=== PATIENT | male | born 1950 | race Hispanic/Latino ===

== ENCOUNTER 2021-03-06 12:33 | Emergency (ER) | payer MEDICAID, OTHER ==
[~2021-03-06] VITALS: Ht 172.7 cm; Wt 86.2 kg
[2021-03-06] MEDS ORDERED: MAG/ALUM/SIMETH 30 ML UDCUP PO SCH (13:00)
[2021-03-06] MEDS ORDERED: ONDANSETRON 4MG INJ IVP SCH (13:00)
[2021-03-06 13:02] LABS: BASOPHILS % (AUTO) 0.5 % (0.0-5.0); EOSINOPHILS % (AUTO) 0.1 % (0.0-8.0); HEMATOCRIT 43.9 % (42-54); LYMPHOCYTES % (AUTO) 12.8 % (21.0-51.0); MEAN CORPUSCULAR HEMOGLOBIN 28.9 pg (27.0-33.0); MEAN CORPUSCULAR HGB CONC 33.5 g/dL (32.0-36.0); MEAN CORPUSCULAR VOLUME 86.4 fL (79-99); MONOCYTES % (AUTO) 9.8 % (3.0-13.0); NEUTROPHILS % (AUTO) 76.4 % (40.0-77.0); PLATELET COUNT (AUTO) 169 K/uL (130-400); RED BLOOD CELL COUNT(AUTO) 5.08 MIL/uL (4.50-6.20); RED CELL DISTRIBUTION WIDTH 12.8 % (11.0-15.5)
[2021-03-06 13:04] LABS: APPEARANCE,URINE Clear (CLEAR); BILIRUBIN,URINE Negative (NEGATIVE); COLOR,URINE Dark Yellow (YELLOW); GLUCOSE, URINE (UA) Negative (NEGATIVE); KETONES,URINE 15 mg/dL (NEGATIVE); LEUKOCYTE ESTERASE ,URINE Negative (NEGATIVE); NITRATE,URINE Negative (NEGATIVE); OCCULT BLOOD,URINE Negative (NEGATIVE); PH,URINE 5.5 (5.0-8.0); PROTEIN,URINE POS 1+ mg/dL (NEGATIVE)
[2021-03-06] MEDS ORDERED: LIDOCAINE HCL 2% VISCOUS 15 ML UDCUP ONE (13:10)
[2021-03-06 13:14] LABS: BACTERIA,URINE Few /HPF (None Seen); RBC,URINE 0-1 /HPF (0-1); WBC,URINE 0-1 /HPF (0-1)
[2021-03-06 13:16] LABS: ALBUMIN 3.8 g/dL (3.5-5.0); BILIRUBIN,TOTAL 0.4 mg/dL (0.2-1.0); POTASSIUM 3.4 mmol/L (3.5-5.1); TOTAL PROTEIN, SERUM 7.3 g/dL (6.0-8.3)
[2021-03-06] MEDS ORDERED: POTASSIUM BICARB/CIT AC 25 MEQ TABLET.EFF PO ONE (14:30)
[2021-03-06] MEDS ORDERED: DICYCLOMINE HCL 10 MG/5 ML ML PO ONE (14:41)
[2021-03-06] MEDS ORDERED: LEVOFLOXACIN 500 MG TABLET PO SCH (15:00)
[2021-03-06] MEDS ORDERED: METRONIDAZOLE 500 MG TABLET PO SCH (15:00)
[2021-03-06] MEDS ORDERED: TAMSULOSIN HCL 0.4 MG CAP.ER.24H PO SCH (15:00)
[2021-03-06] MEDS ORDERED: METR375C2 PO (15:03)
[2021-03-06] MEDS ORDERED: CIPR-278 PO (15:03)
[2021-03-06] MEDS ORDERED: DICY20TA2 PO (15:03)
[2021-03-06] MEDS ORDERED: TAMS-1 PO (15:04)
[2021-03-06] MEDS ORDERED: ACETAMINOPHEN 500 MG TABLET PO SCH (15:30)
[2021-03-06] MEDS ORDERED: ACETAMINOPHEN 500 MG TABLET ONE (15:35)
[2021-03-06] MEDS ORDERED: TAMSULOSIN HCL 0.4 MG CAP.ER.24H ONE (15:35)
[2021-03-06] MEDS ORDERED: METRONIDAZOLE 500 MG TABLET ONE (15:35)
[2021-03-06] MEDS ORDERED: LEVOFLOXACIN 500 MG TABLET ONE (15:35)
[2021-03-06 16:34] VITALS: BP 146/90
== END 2021-03-06 16:35 | disposition home or self-care (01) ==
LOC: EDH 12:33
DX: K52.9 Noninfective gastroenteritis and colitis, unspecified (principal); N41.9 Inflammatory disease of prostate, unspecified
CPT/HCPCS: 36415; 71045; 74176; 80053; 81001; 83690; 84484; 85025; 93005; 96374; 99285; J2405 ×2

== ENCOUNTER 2021-03-07 09:52 | Observation (INO) | payer OTHER ==
[~2021-03-07] VITALS: Ht 149.9 cm; Wt 62.3 kg
[~2021-03-07 09:52] MED LIST: CIPR-278 PO; DICY20TA2 PO; METR375C2 PO; TAMS-1 PO
[2021-03-07] MEDS ORDERED: ONDANSETRON 4MG INJ ONE (10:14)
[2021-03-07] MEDS ORDERED: FAMOTIDINE 20MG VIAL IV ONE (10:15)
[2021-03-07 10:22] LABS: EOSINOPHILS % (AUTO) 1.2 % (0.0-8.0); HEMATOCRIT 44.9 % (42-54); LYMPHOCYTES % (AUTO) 17.8 % (21.0-51.0); MEAN CORPUSCULAR HGB CONC 34.1 g/dL (32.0-36.0); MEAN CORPUSCULAR VOLUME 85.2 fL (79-99); MONOCYTES % (AUTO) 11.5 % (3.0-13.0); NEUTROPHILS % (AUTO) 68.3 % (40.0-77.0); PLATELET COUNT (AUTO) 181 K/uL (130-400); RED BLOOD CELL COUNT(AUTO) 5.27 MIL/uL (4.50-6.20); RED CELL DISTRIBUTION WIDTH 12.8 % (11.0-15.5); WHITE BLOOD COUNT (AUTO) 8.3 K/uL (4.8-10.8)
[2021-03-07] MEDS ORDERED: 0.9%NACL 1000ML 1,000 ML IV ONE (10:27)
[2021-03-07] MEDS ORDERED: 0.9%NACL 1000ML 1,000 ML IV SCH (10:30)
[2021-03-07 10:35] LABS: CREATININE 1.1 mg/dL (0.5-1.5); POTASSIUM 3.8 mmol/L (3.5-5.1)
[2021-03-07 10:39] LABS: ALBUMIN 4.1 g/dL (3.5-5.0); BILIRUBIN,TOTAL 0.6 mg/dL (0.2-1.0); TOTAL PROTEIN, SERUM 7.8 g/dL (6.0-8.3)
[2021-03-07] MEDS ORDERED: MORPHINE 2 MG SYG ONE (10:39)
[2021-03-07] MEDS ORDERED: FAMOTIDINE 20MG VIAL IV SCH (11:00)
[2021-03-07] MEDS ORDERED: ONDANSETRON 4MG INJ IVP SCH (11:00)
[2021-03-07 11:17] LABS: B-TYPE NATRIURETIC PEPTIDE 15 pg/mL (0-100)
[2021-03-07 11:33] LABS: APPEARANCE,URINE CLEAR (CLEAR); BILIRUBIN,URINE SMALL (NEGATIVE); COLOR,URINE YELLOW (YELLOW); GLUCOSE, URINE (UA) NEGATIVE (NEGATIVE); KETONES,URINE >=80 mg/dL (NEGATIVE); LEUKOCYTE ESTERASE ,URINE NEGATIVE (NEGATIVE); NITRATE,URINE NEGATIVE (NEGATIVE); OCCULT BLOOD,URINE NEGATIVE (NEGATIVE); PH,URINE 8.5 (5.0-8.0); PROTEIN,URINE TRACE mg/dL (NEGATIVE)
[2021-03-07 11:50] LABS: AMPHET/METH SCREEN,URINE NEGATIVE (NEGATIVE); BARBITURATE SCREEN, URINE NEGATIVE (NEGATIVE); BENZODIAZEPINES SCREEN,URINE NEGATIVE (NEGATIVE); CANNABINOID SCREEN,URINE POSITIVE (NEGATIVE); COCAINE SCREEN,URINE POSITIVE (NEGATIVE); OPIATE SCREEN,URINE NEGATIVE (NEGATIVE); PHENCYCLIDINE SCREEN,URINE NEGATIVE (NEGATIVE)
[2021-03-07 12:08] LABS: BACTERIA,URINE Moderate /HPF (None Seen); RBC,URINE 0-1 /HPF (0-1); SQUAMOUS EPITHELIAL CELL,UR 0-2 /HPF (0-2); WBC,URINE 0-1 /HPF (0-1)
[2021-03-07 12:09] LABS: MUCUS,URINE Moderate LPF (None Seen)
[2021-03-07] MEDS ORDERED: DIPHENHYDRAMINE HCL 25 MG CAPSULE PO PRN (14:00)
[2021-03-07] MEDS ORDERED: DiphenhydrAMINE HCL 50 MG/ML VIAL IV PRN (14:00)
[2021-03-07] MEDS ORDERED: MAG/ALUM/SIMETH 30 ML UDCUP PO PRN (14:00)
[2021-03-07] MEDS ORDERED: ACETAMINOPHEN 325 MG TAB PO PRN ×2 (14:00)
[2021-03-07] MEDS ORDERED: ACETAMINOPHEN WITH CODEINE 1 TAB TAB PO PRN (14:00)
[2021-03-07] MEDS ORDERED: ZOLPIDEM TARTRATE 5 MG TAB PO PRN (14:00)
[2021-03-07] MEDS ORDERED: ONDANSETRON 4MG INJ IV PRN (14:00)
[2021-03-07] MEDS: 0.9%NACL 1000ML 1,000 ML IV SCH ×2 (15:14→23:01)
[2021-03-07 16:45] VITALS: BP 125/76
[2021-03-07] MEDS: FAMOTIDINE 20MG VIAL IV SCH (19:32)
[2021-03-07 20:00] VITALS: BP 132/79
[2021-03-08 00:28] VITALS: BP 110/87
[2021-03-08 04:00] VITALS: BP 108/70
[2021-03-08 05:47] LABS: HEMATOCRIT 40.1 % (42-54); MEAN CORPUSCULAR HEMOGLOBIN 28.5 pg (27.0-33.0); MEAN CORPUSCULAR HGB CONC 32.7 g/dL (32.0-36.0); MEAN CORPUSCULAR VOLUME 87.4 fL (79-99); RED BLOOD CELL COUNT(AUTO) 4.59 MIL/uL (4.50-6.20); RED CELL DISTRIBUTION WIDTH 13.1 % (11.0-15.5); WHITE BLOOD COUNT (AUTO) 8.6 K/uL (4.8-10.8)
[2021-03-08 06:09] LABS: ALBUMIN 3.1 g/dL (3.5-5.0); BILIRUBIN,TOTAL 0.5 mg/dL (0.2-1.0); CREATININE 0.8 mg/dL (0.5-1.5); POTASSIUM 3.8 mmol/L (3.5-5.1); TOTAL PROTEIN, SERUM 6.1 g/dL (6.0-8.3)
[2021-03-08 08:00] VITALS: BP 137/76
[2021-03-08] MEDS ORDERED: ENOXAPARIN SODIUM 30 MG/0.3 ML SQ SCH (09:00)
[2021-03-08] MEDS: FAMOTIDINE 20MG VIAL IV SCH (10:21)
[2021-03-08 11:44] VITALS: BP 132/64
[2021-03-08 16:00] VITALS: BP 123/82
== END 2021-03-08 17:20 | disposition home or self-care (01) ==
LOC: EDH 09:52 → EDHIP 09:53 → 3DH 17:14
PROVIDERS: ADMIT Hospitalist; ATTEND Hospitalist
DX: R10.9 Unspecified abdominal pain (principal); E87.2 Acidosis; F12.90 Cannabis use, unspecified, uncomplicated; F10.10 Alcohol abuse, uncomplicated; E86.0 Dehydration; N41.9 Inflammatory disease of prostate, unspecified; R11.10 Vomiting, unspecified; Z59.00 Homelessness unspecified
CPT/HCPCS: 36415 ×2; 80053 ×2; 80305; 82550; 83605 ×2; 83880; 84145; 84484; 85025; 85027; 87040 ×2; 87088; 93005; 96361 ×2; 96372; 96374; 96375; 96376 ×2; 99284; G0378 ×27; J1650; J2405; J3490 ×2; J7030 ×2